=== PATIENT | male | born 1990 | race Caucasian/White ===

== ENCOUNTER 2021-04-12 18:21 | Inpatient (IN) | payer OTHER, BC ==
[~2021-04-12] VITALS: Ht 177.8 cm; Wt 131.5 kg
[2021-04-12 20:42] LABS: HEMOGLOBIN 16.6 gm/dl (14.0-17.5); RED BLOOD COUNT 5.36 M/UL (4.20-5.50); WHITE BLOOD COUNT 12.5 K/UL (4.5-11.0)
[2021-04-12 21:04] LABS: BUN/CREATININE RATIO 14 (0-10)
[2021-04-13] MEDS ORDERED: ENDOCET 7.5-321 EACH PO (16:01)
--- NOTE | 2021-04-13 17:17 | NUR ---
PATIENT RETURNED FROM SURGERY AT THIS TIME. ALERT, VERBAL, BUT SLIGHTLY LETHARGIC. TELEMETRY APPLIED. SCDS IN USE. LEFT UPPER EXTREMITY ELEVATED TO IV POLE ORDERED. INCENTIVE SPIROMETER AT BEDSIDE AND INSTRUCTED PATIENT AND ON USE.
== END 2021-04-14 12:53 | disposition home or self-care (01) | DRG 511 ==
LOC: ER1 18:21 → CDU 20:12 → M/S 20:54 → CDU 20:54 → M/S 21:43
PROVIDERS: Emergency Medicine; ADMIT Orthopaedic Surgery
PROC: 0PSJ04Z Reposition Left Radius with Internal Fixation Device, Open Approach (ICD-10-PCS; principal; 2021-04-13 17:15)
DX: S52.372A Galeazzi's fracture of left radius, initial encounter for closed fracture (principal); Z68.41 Body mass index [BMI] 40.0-44.9, adult; F17.200 Nicotine dependence, unspecified, uncomplicated; G58.9 Mononeuropathy, unspecified; Z20.822 Contact with and (suspected) exposure to COVID-19; E66.01 Morbid (severe) obesity due to excess calories; Z98.52 Vasectomy status; Z82.49 Family history of ischemic heart disease and other diseases of the circulatory system; V89.2XXA Person injured in unspecified motor-vehicle accident, traffic, initial encounter; Y93.89 Activity, other specified; Y92.89 Other specified places as the place of occurrence of the external cause; Z79.899 Other long term (current) drug therapy
CPT/HCPCS: 29105; 36415; 72170; 73080; 73090; 73110; 73564; 76000; 80048; 85025; 99284; C1713; J0171; J0690; J1100; J1650; J1885; J2001; J2250; J2270; J2405; J2704; J2795; J3010; J7120; U0002